=== PATIENT | male | born 1980 | race American Indian/Alaskan Native ===

== ENCOUNTER 2020-06-14 01:00 | Inpatient (IN) | payer OTHER ==
[2020-06-14 02:19] LABS: Basophils % (Auto) 0.1 % (0.0-1.8); Eosinophils % (Auto) 0.2 % (0.0-4.3); Hematocrit 47.9 % (35.5-45.6); Hemoglobin 16.1 gm/dl (11.8-15.2); Lymphocytes # (Auto) 2.3 K/mm3 (1.2-5.4); Lymphocytes % (Auto) 18.6 % (13.4-35.0); Mean Corpuscular HGB Conc 34 % (32-34); Mean Corpuscular Volume 97 fl (84-94); Monocytes # (Auto) 0.6 K/mm3 (0.0-0.8); Monocytes % (Auto) 4.9 % (0.0-7.3); Platelet Count 208 K/mm3 (140-440); Red Blood Count 4.95 M/mm3 (3.65-5.03); Red Cell Distribution Width 13.8 % (13.2-15.2)
[2020-06-14 02:36] LABS: Alanine Aminotransferase 9 units/L (7-56); Albumin 4.8 g/dL (3.9-5); BUN/Creatinine Ratio 11; Blood Urea Nitrogen 10 mg/dL (9-20); Hemolysis Index 5
[2020-06-14] MEDS ORDERED: MORPHINE 4 MG/1 ML INJ IV ONE ×2 (03:50→06:21)
[2020-06-14] MEDS ORDERED: FAMOTIDINE 20 MG/2 ML INJ IV ONE (03:50)
[2020-06-14] MEDS ORDERED: ONDANSETRON 4 MG/2 ML INJ IV ONE ×2 (03:50→06:21)
--- NOTE | 2020-06-14 05:23 | Emergency Department Report ---
ED Abdominal Pain HPI - General Chief Complaint: Abdominal Pain Stated Complaint: ABDOMINAL PAIN Source: patient Mode of arrival: Stretcher Limitations: No Limitations - History of Present Illness Initial Comments: Patient is a 39-year-old -[place] male with a history of peptic ulcer disease and chronic alcohol abuse who presents to the ED with complaint of acute onset persistent severe periumbilical abdominal pain for the last 2 hours. Patient states that the pain is constant, crampy and sharp and that nothing makes it better or worse. Patient states that the last time he drank alcohol was about 6 hours ago. Patient denies hematemesis, nausea, vomiting, diarrhea, fever, chills, cough, chest pain, shortness of breath, dysuria, urinary frequency and urgency, hematochezia, testicular pain, hematuria, headache, dizziness or syncope and traumatic injury. MD Complaint: abdominal pain -: Sudden, hour(s) (2) Location: periumbilical Radiation: none Migration to: no migration Severity: severe Severity scale (0 -10): 8 Quality: cramping, sharp Consistency: constant Improves With: nothing Worsens With: nothing Associated Symptoms: denies other symptoms, anorexia. denies: nausea, vomiting, diarrhea, chills, constipation, hematemesis, hematochezia, melena, syncope, other - Related Data Allergies Allergy/AdvReac Type Severity Reaction Status Date / Time No Known Allergies Allergy Unverified 06/14/20 01:46 ED Review of Systems ROS: Stated complaint: ABDOMINAL PAIN Other details as noted in HPI Constitutional: denies: chills, fever Eyes: denies: eye pain, eye discharge, vision change ENT: denies: ear pain, throat pain Respiratory: denies: cough, shortness of breath, wheezing Cardiovascular: denies: chest pain, palpitations Endocrine: no symptoms reported Gastrointestinal: abdominal pain (Periumbilical pain). denies: nausea, diarrhea Genitourinary: denies: urgency, dysuria Musculoskeletal: denies: back pain, joint swelling, arthralgia Skin: denies: rash, lesions Neurological: denies: headache, weakness, paresthesias Psychiatric: denies: anxiety, depression Hematological/Lymphatic: denies: easy bleeding, easy bruising ED Past Medical Hx - Past Medical History Additional medical history: Peptic Ulcer - Social History Smoking Status: Current Every Day Smoker ED Physical Exam - General Limitations: No Limitations General appearance: alert, in no apparent distress - Head Head exam: Present: atraumatic, normocephalic, normal inspection - Eye Eye exam: Present: normal appearance, PERRL, EOMI Pupils: Present: normal accommodation - ENT ENT exam: Present: normal exam, normal orophraynx, mucous membranes moist, TM's normal bilaterally, normal external ear exam - Neck Neck exam: Present: normal inspection, full ROM - Respiratory Respiratory exam: Present: normal lung sounds bilaterally. Absent: respiratory distress, wheezes, rales, rhonchi, chest wall tenderness, accessory muscle use - Cardiovascular Cardiovascular Exam: Present: regular rate, normal rhythm, normal heart sounds. Absent: systolic murmur, diastolic murmur, rubs, gallop - GI/Abdominal GI/Abdominal exam: Present: soft, tenderness (Palpable severe rebound periumbil ical abdominal tenderness with guarding ), guarding, rebound, normal bowel sounds. Absent: hyperactive bowel sounds - Extremities Exam Extremities exam: Present: normal inspection, full ROM, normal capillary refill - Back Exam Back exam: Present: normal inspection, full ROM. Absent: tenderness, CVA tenderness (R), CVA tenderness (L), muscle spasm, paraspinal tenderness, vertebral tenderness - Neurological Exam Neurological exam: Present: alert, oriented X3, CN II-XII intact, normal gait, reflexes normal - Psychiatric Psychiatric exam: Present: normal affect, normal mood - Skin Skin exam: Present: warm, dry, intact, normal color. Absent: rash ED Course Vital Signs 06/14/20 06/14/20 06/14/20 01:50 04:26 04:56 Temperature 97.3 F L Pulse Rate 96 H Respiratory 18 16 16 Rate Blood Pressure 138/90 Blood Pressure [Left] O2 Sat by Pulse 100 Oximetry 06/14/20 05:46 Temperature 98.2 F Pulse Rate 98 H Respiratory 18 Rate Blood Pressure Blood Pressure 117/84 [Left] O2 Sat by Pulse 100 Oximetry - Reevaluation(s) Reevaluation #1: 06/14/20 05:53 I paged and discussed the patient's case with the general surgeon on-call Dr. Aryan Purvis who advised that the patient be kept n.p.o., be started on IV Zosyn, have NG tube inserted in the ED, and that the patient be admitted by the hospitalist physician on-call and he shall consult on the patient later this morning. Reevaluation #2: 06/14/20 06:15 I therefore paged and discussed the patient's case with the hospitalist physician on-call who accepted the admission and advised that the patient be bridged to the floor in order to obtain a bed. ED Medical Decision Making - Lab Data Result diagrams: 06/14/20 01:54 06/14/20 01:54 - Radiology Data Radiology results: report reviewed, image reviewed [facility] [address] [place] [address] Cat Scan Report Signed Patient: KIMBERLY ARORA MR#: [id number] : 1980 Acct:[id number] Age/Sex: 39 / M ADM Date: 06/14/20 Loc: ED Attending Dr: Ordering Physician: MARYCHUY ALBARRAN Date of Service: 06/14/20 Procedure(s): CT abdomen pelvis w con Accession Number(s): [id number] cc: MARYCHUY ALBARRAN CT ABDOMEN AND PELVIS WITH CONTRAST HISTORY: Abdominal pain. COMPARISON: None. TECHNIQUE: CT images of the abdomen and pelvis were obtained following administration of intravenous contrast. All CT scans at this location are performed using CT dose reduction for ALARA by means of automated exposure control. CONTRAST: 100 ml of intravenous contrast administered. FINDINGS: Lungs/bones: Lung bases are clear. No acute osseous abnormality. Abdomen/pelvis: There is small volume ascites with a few punctate foci of gas collecting about the gallbladder fossa region and also over the liver. Questionable mild wall thickening about the duodenum also noted. The liver, gallbladder spleen, pancreas, adrenals, and kidneys appear unremarkable. Urinary bladder and prostate appear unremarkable. There is small volume pelvic free fluid. No acute colonic abnormality identified. The appendix is normal. IMPRESSION: 1. Small volume ascites and punctate free air in the right upper quadrant of the abdomen worrisome for a perforation. Questionable mild wall thickening along the duodenum also noted. Findings could be seen with a duodenal ulcer perforation for example. IMPORTANT FINDING: Time of Communication (INTAKE ASSESSOR/CDT): 4:16 AM Licensed Practitioner Receiving Report: Dr. Jeff Signer Name: Driss Park MD Signed: 06/14/2020 5:19 AM Workstation Name: [id number] Transcribed By: ANNETTA Dictated By: Driss Park MD Electronically Authenticated By: Driss Park MD Signed Date/Time: 06/14/20518 DD/ 8 TD/TT: - Medical Decision Making This is a 39-year-old -[place] male with a history of peptic ulcer disease and chronic alcohol abuse who presents to the ED with complaint of acute onset persistent severe periumbilical abdominal pain for the last 2 hours. Patient states that the pain is constant, crampy and sharp and that nothing makes it better or worse. Patient states that the last time he drank alcohol was about 6 hours ago. In the ED, patient is alert and oriented x3 and is not in any distress but appears to be in significant pain, crying during the phys ical exam. Lab test results were reviewed and showed acute leukocytosis of 12,300 and hyperglycemia 123 mg/dL. The rest of lab test results are nonactionable. Patient was treated for pain in the ED and also received antiemetics and antacids. Patient also received normal saline 1 L IV bolus x1. Abdomen pelvis CT scan with contrast showed small volume ascites and punctate free air in the right upper quadrant of the abdomen worrisome for a perforation. Questionable mild wall thickening along the duodenum also noted. Findings could be seen with a duodenal ulcer perforation for example. These findings were discussed with the ED attending physician Dr. Tate who agreed the plan of care to page the general surgeon on-call for further consultation. I therefore paged and discussed the patient's case including lab test results and imaging report with the general surgeon on-call Dr. Yaniv Baeza who advised that the patient be kept n.p.o., and NG tube be inserted, and patient be started on Zosyn IV and also be admitted by the hospitalist physician on-call, and he shall consult on the patient later this morning. I also paged and discussed the patient's case with the hospitalist physician on-call who accepted the admission and advised that the patient admission to bridge to the floor in order for him to obtain the bed. The findings also discussed with the patient who agreed with the plan of care. - Differential Diagnosis Appendicitis; pancreatitis; PUD; colitis; enteritis; cholecystitis; SBO Critical care attestation.: If time is entered above; I have spent that time in minutes in the direct care of this critically ill patient, excluding procedure time. ED Disposition Clinical Impression: Abdominal pain, acute, periumbilical, Perforated abdominal viscus, Recurrent p eptic ulcer disease Disposition: OP ADMIT IP TO THIS HOSP Is pt being admited?: Yes Does the pt Need Aspirin: No Condition: Stable Time of Disposition: 06:00 Print Language: BANGLADESHI
--- NOTE | 2020-06-14 05:24 | Cat Scan Report ---
CT ABDOMEN AND PELVIS WITH CONTRAST HISTORY: Abdominal pain. COMPARISON: None. TECHNIQUE: CT images of the abdomen and pelvis were obtained following administration of intravenous contrast. All CT scans at this location are performed using CT dose reduction for ALARA by means of automated exposure control. CONTRAST: 100 ml of intravenous contrast administered. FINDINGS: Lungs/bones: Lung bases are clear. No acute osseous abnormality. Abdomen/pelvis: There is small volume ascites with a few punctate foci of gas collecting about the g allbladder fossa region and also over the liver. Questionable mild wall thickening about the duodenum also noted. The liver, gallbladder spleen, pancreas, adrenals, and kidneys appear unremarkable. Urinary bladder and prostate appear unremarkable. There is small volume pelvic free fluid. No acute c olonic abnormality identified. The appendix is normal. IMPRESSION: 1. Small volume ascites and punctate free air in the right upper quadrant of the abdomen worrisome fo r a perforation. Questionable mild wall thickening along the duodenum also noted. Findings could be s een with a duodenal ulcer perforation for example. IMPORTANT FINDING: Time of Communication (STORE MANAGEMENT TRAINEE/CDT): 4:16 AM Licensed Practitioner Receiving Report: Dr. Jeff Signer Name: Driss Park MD Signed: 06/14/2020 5:19 AM Workstation Name: [id number]
[2020-06-14 05:51] LABS: Bacteria,Urine 2+ /HPF (Negative); Bilirubin,Urine NEG (Negative); Blood,Urine NEG (Negative); Color,Urine Yellow (Yellow); Mucus,Urine 3+ /HPF; Protein,Urine <15 mg/dL mg/dL (Negative)
[2020-06-14] MEDS ORDERED: PIPERACIL/TAZOBACTA 4.5/NS 100 4.5 GM/100 ML VIAL IV ONE (06:01)
[2020-06-14] MEDS ORDERED: SODIUM CHLORIDE 0.9% 1000 ML 1,000 ML IV ONE (06:21)
[2020-06-14] MEDS ORDERED: ACETAMINOPHEN 325 MG TAB PO PRN (06:22)
[2020-06-14] MEDS ORDERED: ONDANSETRON 4 MG/2 ML INJ IV PRN ×2 (06:22→15:34)
[2020-06-14] MEDS ORDERED: PANTOPRAZOLE 40 MG INJ IV ONE (06:56)
--- NOTE | 2020-06-14 07:04 | XRay Report ---
ABDOMEN 3 VIEW(S) INDICATION / CLINICAL INFORMATION: NGT tube placement. COMPARISON: None available. FINDINGS: TUBES / LINES: NG tube at the GE junction and should be advanced another 10 cm. BOWEL GAS PATTERN: No significant abnormality. FREE AIR / EXTRALUMINAL GAS: None seen. ADDITIONAL FINDINGS: No significant additional findings. IMPRESSION: 1. Advance NG tube 10 cm. Signer Name: Driss Park MD Signed: 06/14/2020 7:00 AM Workstation Name: [id number]
[2020-06-14] MEDS: HYDROmorphone 1 MG/1 ML INJ IV PRN (08:24)
--- NOTE | 2020-06-14 09:39 | Anesthesia Consultation ---
Anesthesia Consult and Med Hx Date of service: 06/14/20 - Airway Anesthetic Teeth Evaluation: Chipped ROM Head & Neck: Adequate Mental/Hyoid Distance: Adequate Mallampati Class: Class I Intubation Access Assessment: Good - Pulmonary Exam CTA: Yes - Cardiac Exam Cardiac Exam: RRR - Pre-Operative Health Status ASA Pre-Surgery Classification: ASA2 Proposed Anesthetic Plan: General Nerve Block: TAP possible - Pulmonary Hx Smoking: Yes Hx Asthma: No COPD: No Hx Pneumonia: No Hx Sleep Apnea: No - Cardiovascular System Hx Hypertension: No Hx Heart Attack/AMI: No Hx Angina: No - Central Nervous System Hx Seizures: No - Gastrointestinal Hx Ulcer: Yes Hx Gastroesophageal Reflux Disease: No - Endocrine Hx Renal Disease: No Hx End Stage Renal Disease: No Hx Liver Disease: No Hx Insulin Dependent Diabetes: No Hx Non-Insulin Dependent Diabetes: No - Other Systems Hx Alcohol Use: Yes Hx Cancer: No
--- NOTE | 2020-06-14 09:39 | Anesthesia Day of Surgery ---
Anesthesia Day of Surgery - Day of Surgery Patient Examined: Yes Patient H&P Reviewed: Yes Patient is NPO: Yes (NG tube in place) Beta Blockers: No Cardiac Clearance: No Pulmonary Clearance: No Alejandro's Test: N/A
--- NOTE | 2020-06-14 11:04 | History and Physical Report ---
History of Present Illness Date of examination: 06/14/20 Date of admission: 06/14/20 06:22 Chief complaint: abdominal pain History of present illness: Patient is a 39-year-old -L[place] male with a history of peptic ulcer disease and chronic alcohol abuse who presents to the ED with complaint of acute onset persistent severe periumbilical abdominal pain for the last 2 hours before coming to the hospital. Patient states that the pain is constant, crampy and sharp and that nothing makes it better or worse. Patient states that the last time he drank alcohol was about 6 hours ago. In the ER, CT abdomen/pelvis showed Small volume ascites and punctate free air in the right upper quadrant of the abdomen worrisome for a perforation and Questionable mild wall thickening along the duodenum also noted, Findings could be seen with a duodenal ulcer perforation for example. Serum chemistry significant for leukocytosis and elevated lactic acid. Patient placed on empiric antibiotics, given IV fluid bolus, started on Protonix drip and consulted surgery from the ER. Patient now being admitted under hospitalist service for further evaluation and management. Past medical History: h/o peptic ulcer disease Past surgical History: None Social History: Lives with family, smokes tobacco daily, drinks occasionally denies any illicit drug abuse Family History: No significant significant history of cardiac disease diabetes and gastric cancer cancer Review of System: Constitutional: no fever, no chills, no weight loss Ears, eyes, nose, mouth and throat: no nasal congestion, no nasal discharge, no sinus pressure, no vision change, no red eye. Neck: No neck pain or rigidity. Cardiovascular: No chest pain, no orthopnea, no palpitations, no leg swelling Respiratory: No shortness of breath, no cough, no congestion, no wheezing Gastrointestinal: + abdominal pain, + nausea, + vomiting Genitourinary : no dysuria, no hematuria Musculoskeletal: no joint swelling or muscle ache Integumentary: no rash, no pruritis Neurological: no parathesias, no numbness, no tingling Endocrine: no cold or heat intolerance, no polyuria or polydipsia Hematologic/Lymphatic: no easy bruising, no easy bleeding, no gland swelling Allergic/Immunologic: no urticaria, no angioedema. Medications and Allergies Allergies Allergy/AdvReac Type Severity Reaction Status Date / Time No Known Allergies Allergy Unverified 06/14/20 01:46 Home Medications Medication Instructions Recorded Confirmed Last Taken Type Esomeprazole Magnesium [Nexium 20 mg PO DAILY 06/14/20 06/14/20 06/12/20 History 24Hr] Active Meds: Active Medications Acetaminophen (Acetaminophen 325 Mg Tab) 650 mg PO Q4H PRN PRN Reason: Pain MILD(1-3)/Fever >100.5/CHACON Hydromorphone HCl (Hydromorphone 1 Mg/1 Ml Inj) 1 mg IV Q4H PRN PRN Reason: Pain , Severe (7-10) Last Admin: 06/14/20 08:24 Dose: 1 mg Documented by: Sodium Chloride (Nacl 0.9% 1000 Ml) 1,000 mls @ 125 mls/hr IV ONCE ONE Stop: 06/14/20 14:20 Last Admin: 06/14/20 06:36 Dose: 125 mls/hr Documented by: Ondansetron HCl (Ondansetron 4 Mg/2 Ml Inj) 4 mg IV Q8H PRN PRN Reason: Nausea And Vomiting Sodium Chloride (Sodium Chloride 0.9% 10 Ml Flush Syringe) 10 ml IV BID STEWART Last Admin: 06/14/20 09:12 Dose: Not Given Documented by: Sodium Chloride (Sodium Chloride 0.9% 10 Ml Flush Syringe) 10 ml IV PRN PRN PRN Reason: LINE FLUSH Exam - Physical Exam Narrative exam: GENERAL: well-developed and well-nourished -[place] young male lying on bed appeared to be in no discomfort. HEENT: Normocephalic. Atraumatic. No conjunctival congestion or icterus. Patient has moist mucous membranes. NECK: Supple. Trachea midline. CHEST/LUNGS: Clear to auscultated bilaterally, breathing nonlabored. No wheezes crackles or rhonchi. HEART/CARDIOVASCULAR: Regular in rate and rhythm. S1 and S2 positive. ABDOMEN: Abdomen is soft, + diffuse tenderNESS. Patient has hypoactive bowel sounds. SKIN: There is no rash. Warm and dry. NEURO: No focal motor deficit. Follows command. MUSCULOSKELETAL: No joint effusion or tenderness. EXTRIMITY: No edema, no cyanosis or clubbing. PSYCH: Cooperative. - Constitutional Vitals: Temp Pulse Resp BP Pulse Ox 97.9 F 85 16 134/86 98 06/14/20 08:37 06/14/20 09:05 06/14/20 08:37 06/14/20 08:37 06/14/20 08:37 Results - Labs CBC & Chem 7: 06/14/20 01:54 06/14/20 01:54 Labs: Abnormal lab results 06/14/20 06/14/20 06/14/20 Range/Units 01:54 01:54 03:53 WBC 12.3 H (4.5-11.0) K/mm3 Hgb 16.1 H (11.8-15.2) gm/dl Hct 47.9 H (35.5-45.6) % MCV 97 H (84-94) fl MCH 33 H (28-32) pg Seg Neutrophils % 76.2 H (40.0-70.0) % Seg Neutrophils # 9.4 H (1.8-7.7) K/mm3 Glucose 123 H (75-100) mg/dL Lactic Acid (0.7-2.0) mmol/L Lipase 12 L (13-60) units/L Ur Specific [place] (1.003-1.030) 06/14/20 06/14/20 Range/Units 05:13 08:54 WBC (4.5-11.0) K/mm3 Hgb (11.8-15.2) gm/dl Hct (35.5-45.6) % MCV (84-94) fl MCH (28-32) pg Seg Neutrophils % (40.0-70.0) % Seg Neutrophils # (1.8-7.7) K/mm3 Glucose (75-100) mg/dL Lactic Acid 3.00 H* (0.7-2.0) mmol/L Lipase (13-60) units/L Ur Specific [place] 1.033 H (1.003-1.030) - Imaging and Cardiology Abdominal x-ray: report reviewed CT scan - abdomen: report reviewed Assessment and Plan Perforated viscus Sepsis Lactic acidosis Tobacco abuse Alcohol abuse History of peptic ulcer disease -Admit to MedSurg with aggressive IV fluid hydration, empiric antibiotic -Placed on IV pain medicine as needed -Continue Protonix drip -Consulted surgery will follow recommendation -Monitor for alcohol withdrawal -SCD for DVT prophylaxis -Follow blood culture
[2020-06-14] MEDS: PIPERACIL/TAZOBACTA 4.5/NS 100 4.5 GM/100 ML VIAL IV SCH ×2 (11:47→22:42)
[2020-06-14] MEDS ORDERED: PIPERACILLIN/TAZOBACTAM 3.375 3.375 GM/50 ML BAG IV SCH (12:00)
[2020-06-14] MEDS ORDERED: propofoL 200 MG/20 ML VIAL IV ONE ×2 (12:27→15:25)
[2020-06-14] MEDS ORDERED: HYDROmorphone 1 MG/1 ML INJ ONE (12:27)
[2020-06-14] MEDS ORDERED: LIDOCAINE MPF (2%) 20 MG/1 ML VIAL 5 ML ONE (12:27)
[2020-06-14] MEDS ORDERED: ROCURONIUM 50 MG/5 ML INJ IV ONE (12:27)
[2020-06-14] MEDS ORDERED: SUCCINYLCHOLINE CHLORIDE 200 MG/10 ML INJ MDV ONE (12:36)
[2020-06-14] MEDS ORDERED: dexAMETHasone 20 MG/5 ML VIAL ONE (12:37)
[2020-06-14] MEDS ORDERED: KETOROLAC 30 MG/1 ML INJ ONE (12:37)
[2020-06-14] MEDS ORDERED: ONDANSETRON 4 MG/2 ML INJ ONE (12:37)
[2020-06-14] MEDS ORDERED: PHENYLEPHRINE/NS 1,000 MCG/10 ML SYRINGE (OR USE) IV ONE (14:47)
[2020-06-14] MEDS ORDERED: NEOSTIGMINE 10MG/10 ML INJ MDV ONE (15:34)
[2020-06-14] MEDS ORDERED: GLYCOPYRROLATE 0.4 MG/2 ML INJ ONE (15:34)
[2020-06-14] MEDS ORDERED: HYDROmorphone 1 MG/1 ML INJ IV PRN ×2 (15:34)
[2020-06-14] MEDS ORDERED: LACTATED RINGERS 1,000 ML ONE (16:00)
[2020-06-14] MEDS ORDERED: SODIUM CHLORIDE 0.9% IRR 1,500 ML BOTTLE IR ONE (16:04)
--- NOTE | 2020-06-14 16:14 | Consultation ---
History of Present Illness Consult date: 06/14/20 Reason for consult: abdominal pain - History of present illness History of present illness: 39 yo male with acute epigastric pain. See CT abdomen report. Medications and Allergies Allergies Allergy/AdvReac Type Severity Reaction Status Date / Time No Known Allergies Allergy Unverified 06/14/20 01:46 Home Medications Medication Instructions Recorded Confirmed Last Taken Type Esomeprazole Magnesium [Nexium 20 mg PO DAILY 06/14/20 06/14/20 06/12/20 History 24Hr] Active Meds: Active Medications Acetaminophen (Acetaminophen 325 Mg Tab) 650 mg PO Q4H PRN PRN Reason: Pain MILD(1-3)/Fever >100.5/CHACON Hydromorphone HCl (Hydromorphone 1 Mg/1 Ml Inj) 1 mg IV Q4H PRN PRN Reason: Pain , Severe (7-10) Last Admin: 06/14/20 08:24 Dose: 1 mg Documented by: Hydromorphone HCl (Hydromorphone 1 Mg/1 Ml Inj) 0.25 mg IV Q10MIN PRN PRN Reason: Pain, Moderate (4-6) Stop: 06/14/20 23:00 Hydromorphone HCl (Hydromorphone 1 Mg/1 Ml Inj) 0.5 mg IV Q10MIN PRN PRN Reason: Pain , Severe (7-10) Stop: 06/14/20 23:00 Piperacillin Sod/Tazobactam Sod (Zosyn/Ns 4.5gm/100ml) 4.5 gm in 100 mls @ 200 mls/hr IV Q8HR [facility] Last Admin: 06/14/20 11:47 Dose: 200 mls/hr Documented by: Pantoprazole Sodium 80 mg/ (Sodium Chloride) 100 mls @ 10 mls/hr IV DIRECT STEWART Ondansetron HCl (Ondansetron 4 Mg/2 Ml Inj) 4 mg IV Q8H PRN PRN Reason: Nausea And Vomiting Ondansetron HCl (Ondansetron 4 Mg/2 Ml Inj) 4 mg IV ONCE PRN PRN Reason: Nausea And Vomiting Stop: 06/14/20 20:00 Sodium Chloride (Sodium Chloride 0.9% 10 Ml Flush Syringe) 10 ml IV BID [facility] Last Admin: 06/14/20 09:12 Dose: Not Given Documented by: Sodium Chloride (Sodium Chloride 0.9% 10 Ml Flush Syringe) 10 ml IV PRN PRN PRN Reason: LINE FLUSH Review of Systems All systems: negative (none) Exam Vital Signs Temp Pulse Resp BP Pulse Ox 97.3 F L 96 H 18 138/90 100 06/14/20 01:50 06/14/20 01:50 06/14/20 01:50 06/14/20 01:50 06/14/20 01:50 - General physical appearance Positive: well developed, well nourished, no distress - Eyes Positive: PERRL, normal occular movement - ENT Positive: normal pinna, normal nares, normal mucosa, no hearing loss, no congestion - Neck Positive: no masses, no bruits, trachea midline, no venous distension - Respiratory Positive: normal expansion, normal respiratory effort, clear to auscultation - Cardiovascular Rhythm: regular Heart Sounds: Present: S1 & S2. Absent: rub, click - Extremities Extremities: no ischemia, pulses symmetrical, No edema - Breasts Breasts: normal, no mass, no skin changes - Abdomen Abdomen: Present: other (Flat with hypoactive BS. Tender in the epigastrium with early guarding. ) Hernia: none - Genitourinary Male Genitourinary: normal Female Genitourinary: normal - Integumentary no rash, no growths, no abnormal pigmentation - Neurologic Neurologic: alert and oriented to time, place and person, motor strength and sensation are grossly intact - Musculoskeletal normal gait, normal posture - Psychiatric Psychiatric: appropriate mood/affect, intact judgment & insight Results - Labs 06/14/20 01:54 06/14/20 01:54 Abnormal lab results 06/14/20 06/14/20 06/14/20 Range/Units 01:54 01:54 03:53 WBC 12.3 H (4.5-11.0) K/mm3 Hgb 16.1 H (11.8-15.2) gm/dl Hct 47.9 H (35.5-45.6) % MCV 97 H (84-94) fl MCH 33 H (28-32) pg Seg Neutrophils % 76.2 H (40.0-70.0) % Seg Neutrophils # 9.4 H (1.8-7.7) K/mm3 Glucose 123 H (75-100) mg/dL Lactic Acid (0.7-2.0) mmol/L Lipase 12 L (13-60) units/L Ur Specific [place] (1.003-1.030) 06/14/20 06/14/20 Range/Units 05:13 08:54 WBC (4.5-11.0) K/mm3 Hgb (11.8-15.2) gm/dl Hct (35.5-45.6) % MCV (84-94) fl MCH (28-32) pg Seg Neutrophils % (40.0-70.0) % Seg Neutrophils # (1.8-7.7) K/mm3 Glucose (75-100) mg/dL Lactic Acid 3.00 H* (0.7-2.0) mmol/L Lipase (13-60) units/L Ur Specific [place] 1.033 H (1.003-1.030) Diabetes panel 06/14/20 Range/Units 01:54 Sodium 138 (137-145) mmol/L Potassium 4.0 (3.6-5.0) mmol/L Chloride 98.6 (98-107) mmol/L Carbon Dioxide 27 (22-30) mmol/L BUN 10 (9-20) mg/dL Creatinine 0.9 (0.8-1.3) mg/dL Glucose 123 H (75-100) mg/dL Calcium 10.0 (8.4-10.2) mg/dL AST 13 (5-40) units/L ALT 9 (7-56) units/L Alkaline Phosphatase 65 (35-129) units/L Total Protein 7.1 (6.3-8.2) g/dL Albumin 4.8 (3.9-5) g/dL Calcium panel 06/14/20 Range/Units 01:54 Calcium 10.0 (8.4-10.2) mg/dL Albumin 4.8 (3.9-5) g/dL Pituitary panel 06/14/20 Range/Units 01:54 Sodium 138 (137-145) mmol/L Potassium 4.0 (3.6-5.0) mmol/L Chloride 98.6 (98-107) mmol/L Carbon Dioxide 27 (22-30) mmol/L BUN 10 (9-20) mg/dL Creatinine 0.9 (0.8-1.3) mg/dL Glucose 123 H (75-100) mg/dL Calcium 10.0 (8.4-10.2) mg/dL Adrenal panel 06/14/20 Range/Units 01:54 Sodium 138 (137-145) mmol/L Potassium 4.0 (3.6-5.0) mmol/L Chloride 98.6 (98-107) mmol/L Carbon Dioxide 27 (22-30) mmol/L BUN 10 (9-20) mg/dL Creatinine 0.9 (0.8-1.3) mg/dL Glucose 123 H (75-100) mg/dL Calcium 10.0 (8.4-10.2) mg/dL Total Bilirubin 1.00 (0.1-1.2) mg/dL AST 13 (5-40) units/L ALT 9 (7-56) units/L Alkaline Phosphatase 65 (35-129) units/L Total Protein 7.1 (6.3-8.2) g/dL Albumin 4.8 (3.9-5) g/dL - Imaging CT scan - abdomen: report reviewed CT scan - pelvis: report reviewed Assessment and Plan - Patient Problems (1) Perforated abdominal viscus Current Visit: Yes Status: Acute Plan to address problem: 1) IV Zosyn 2) NPO 3) IVF 4) IV PPI 5) To OR for exploratory laparotomy and oversewing of ulcer/Negro patch
--- NOTE | 2020-06-14 16:16 | Procedure Note ---
Date of procedure: 06/14/20 Pre-op diagnosis: Perforated /DU Post-op diagnosis: same Procedure: Exploratory laparotomy with oversew of perforated duodenal bulb ulcer Description of procedure: Pt was placed supine on the OR table. GETA was administered. Browne catheter was inserted. Abdomen was prepped and draped. Peritoneal cavity was entered via a vertical midline incision from the xiphoid process to the umbilicus. Immediately on entering the peritoneal cavity, free bilious fluid was encountered. The was collected for C&S. The perforation was immediately identified at the anterior-superior aspect of the duodenal bulb. Free fluid was aspirated. The ulcer measured about 1 cm in diameter and was oversewn with 3 interrupted sutures of 2-0 silk. The 2-0 silk ties were left long to secure the omental patch. Omentum was freed up from the transverse colon with the Bovie. The freed up omentum was then placed over the perforation and was secured in place by the aforementioned 2-0 silk ties. Peritoneal cavity was irrigated with 2 liters of warm saline. Midline fascia was approximated with a running, looped #1 PDS. SQ plane was packed open with a dilute, Betadine moistened Kerlix roll followed by dry 4 X 4's and Medipore tape. Pt tolerated the procedure well. Pt was extubated in the OR and was taken to PACU in stable condition. Anesthesia: GETA Surgeon: RADHA MORRIS Estimated blood loss: minimal Pathology: none Condition: stable Disposition: PACU
[2020-06-14] MEDS: PANTOPRAZOLE 80 MG in SODIUM CHLORIDE 0.9% 100 ML IV SCH (17:32)
[2020-06-15] MEDS: PIPERACIL/TAZOBACTA 4.5/NS 100 4.5 GM/100 ML VIAL IV SCH ×3 (05:51→21:36)
[2020-06-15 09:53] LABS: Hematocrit 38.3 % (35.5-45.6); Hemoglobin 12.9 gm/dl (11.8-15.2); Mean Corpuscular HGB Conc 34 % (32-34); Mean Corpuscular Volume 97 fl (84-94); Platelet Count 153 K/mm3 (140-440); Red Blood Count 3.96 M/mm3 (3.65-5.03); Red Cell Distribution Width 13.4 % (13.2-15.2)
[2020-06-15] MEDS: D5W/0.9% NACL 1,000 ML IV SCH (10:04)
[2020-06-15 10:09] LABS: BUN/Creatinine Ratio 13; Blood Urea Nitrogen 15 mg/dL (9-20); Calcium 8.3 mg/dL (8.4-10.2); Hemolysis Index 6
--- NOTE | 2020-06-15 10:41 | Post Anesthesia Evaluation ---
- Post Anesthesia Evaluation Patient Participated: Yes Airway Patent: Yes Stable Respiratory Function: Yes Nausea/Vomiting: No Temp > 96.8F: Yes Pain Manageable: Yes Adequeate Hydration: Yes Anesthesia Complications: No Block Receding Appropriately: Not Applicable Patient on Ventilator: No
[2020-06-15] MEDS: PANTOPRAZOLE 80 MG in SODIUM CHLORIDE 0.9% 100 ML IV SCH (12:07)
--- NOTE | 2020-06-15 15:04 | Progress Note ---
Assessment and Plan - Patient Problems (1) Perforated abdominal viscus Current Visit: Yes Status: Acute Plan to address problem: 1) DC marin 2) OOB 3) Wound care nurse consult Subjective Date of service: 06/15/20 Patient Reports: Positive: no new complaints, no flatus, no bowel movement Objective Vital Signs - 12hr 06/15/20 06/15/20 05:31 13:02 Temperature 98.2 F 98.9 F Pulse Rate 73 75 Respiratory 20 20 Rate Blood Pressure 116/73 Blood Pressure 112/72 [Left] O2 Sat by Pulse 100 Oximetry - Abdomen soft, bowel sounds hypoactive - Labs 06/15/20 09:37 06/15/20 09:37 Diabetes panel 06/15/20 Range/Units 09:37 Sodium 138 (137-145) mmol/L Potassium 4.2 (3.6-5.0) mmol/L Chloride 103.1 (98-107) mmol/L Carbon Dioxide 28 (22-30) mmol/L BUN 15 (9-20) mg/dL Creatinine 1.2 (0.8-1.3) mg/dL Glucose 96 (75-100) mg/dL Calcium 8.3 L D (8.4-10.2) mg/dL Calcium panel 06/15/20 Range/Units 09:37 Calcium 8.3 L D (8.4-10.2) mg/dL Pituitary panel 06/15/20 Range/Units 09:37 Sodium 138 (137-145) mmol/L Potassium 4.2 (3.6-5.0) mmol/L Chloride 103.1 (98-107) mmol/L Carbon Dioxide 28 (22-30) mmol/L BUN 15 (9-20) mg/dL Creatinine 1.2 (0.8-1.3) mg/dL Glucose 96 (75-100) mg/dL Calcium 8.3 L D (8.4-10.2) mg/dL Adrenal panel 06/15/20 Range/Units 09:37 Sodium 138 (137-145) mmol/L Potassium 4.2 (3.6-5.0) mmol/L Chloride 103.1 (98-107) mmol/L Carbon Dioxide 28 (22-30) mmol/L BUN 15 (9-20) mg/dL Creatinine 1.2 (0.8-1.3) mg/dL Glucose 96 (75-100) mg/dL Calcium 8.3 L D (8.4-10.2) mg/dL
--- NOTE | 2020-06-15 16:08 | Progress Note ---
Assessment and Plan Perforated viscus Sepsis Lactic acidosis Tobacco abuse Alcohol abuse History of peptic ulcer disease -Admitted to [facility] with aggressive IV fluid hydration, empiric antibiotic -Placed on IV pain medicine as needed -Continue Protonix drip -Consulted surgery and s/p surgery yesterday - cont NPO status, IV fluid -Monitor for alcohol withdrawal -SCD for DVT prophylaxis -Follow blood culture Brief History: Patient is a 39-year-old -Turkish male with a history of peptic ulcer disease and chronic alcohol abuse presented to the ED with complaint of acute onset persistent severe periumbilical abdominal pain. In the ER, CT abdomen/pelvis showed Small volume ascites and punctate free air in the right upper quadrant of the abdomen worrisome for a perforation and Questionable mild wall thickening along the duodenum also noted, Findings could be seen with a duodenal ulcer perforation for example. Serum chemistry significant for leukocytosis and elevated lactic acid. Patient placed on empiric antibiotics, given IV fluid bolus, started on Protonix drip and consulted surgery from the ER. 06/15: s/p Exploratory laparotomy with oversew of perforated duodenal bulb ulcer with omentum patch repair. Keep NPO, cont iv fluid, iv abx. follow clinically. Subjective Date of service: 06/15/20 Interval history: Patient seen and examined. Medical records and medication list reviewed. No acute event overnight noted by the RN. Patient denies any chest pain or difficulty breathing. Patient states that abdominal pain under control and he is feeling a lot better today Discussed plan of care at bedside with patient. Objective - Exam Narrative Exam: GENERAL: well-developed and well-nourished -[place]ish young male lying on bed appeared to be in no discomfort. HEENT: Normocephalic. Atraumatic. No conjunctival congestion or icterus. Patient has moist mucous membranes. NECK: Supple. Trachea midline. CHEST/LUNGS: Clear to auscultated bilaterally, breathing nonlabored. No wheezes crackles or rhonchi. HEART/CARDIOVASCULAR: Regular in rate and rhythm. S1 and S2 positive. ABDOMEN: Abdomen is soft, on clean surgical dressing SKIN: There is no rash. Warm and dry. NEURO: No focal motor deficit. Follows command. MUSCULOSKELETAL: No joint effusion or tenderness. EXTRIMITY: No edema, no cyanosis or clubbing. PSYCH: Cooperative. - Constitutional Vitals: Vital Signs - 12hr 06/15/20 06/15/20 05:31 13:02 Temperature 98.2 F 98.9 F Pulse Rate 73 75 Respiratory 20 20 Rate Blood Pressure 116/73 Blood Pressure 112/72 [Left] O2 Sat by Pulse 100 Oximetry - Labs CBC & Chem 7: 06/15/20 09:37 06/15/20 09:37 Labs: Abnormal lab results 06/15/20 06/15/20 Range/Units 09:37 09:37 MCV 97 H (84-94) fl MCH 33 H (28-32) pg Calcium 8.3 L D (8.4-10.2) mg/dL
[2020-06-15] MEDS: HYDROmorphone 1 MG/1 ML INJ IV PRN ×2 (17:54→23:52)
[2020-06-16] MEDS: D5W/0.9% NACL 1,000 ML IV SCH ×2 (02:09→18:11)
[2020-06-16] MEDS: PANTOPRAZOLE 80 MG in SODIUM CHLORIDE 0.9% 100 ML IV SCH ×3 (02:09→22:38)
[2020-06-16] MEDS: PIPERACIL/TAZOBACTA 4.5/NS 100 4.5 GM/100 ML VIAL IV SCH ×3 (05:17→22:38)
[2020-06-16 08:22] LABS: Basophils % (Auto) 0.2 % (0.0-1.8); Eosinophils # (Auto) 0.1 K/mm3 (0.0-0.4); Eosinophils % (Auto) 1.3 % (0.0-4.3); Hematocrit 36.1 % (35.5-45.6); Hemoglobin 12.1 gm/dl (11.8-15.2); Lymphocytes # (Auto) 1.4 K/mm3 (1.2-5.4); Lymphocytes % (Auto) 15.7 % (13.4-35.0); Mean Corpuscular HGB Conc 34 % (32-34); Mean Corpuscular Volume 98 fl (84-94); Monocytes # (Auto) 0.6 K/mm3 (0.0-0.8); Platelet Count 134 K/mm3 (140-440); Red Blood Count 3.69 M/mm3 (3.65-5.03); Red Cell Distribution Width 13.8 % (13.2-15.2)
[2020-06-16 08:28] LABS: BUN/Creatinine Ratio 11; Blood Urea Nitrogen 12 mg/dL (9-20); Calcium 8.2 mg/dL (8.4-10.2); Hemolysis Index 2
--- NOTE | 2020-06-16 10:26 | Progress Note ---
Assessment and Plan - Patient Problems (1) Perforated abdominal viscus Current Visit: Yes Status: Acute Plan to address problem: 1) DC NG 2) Sips of clears 3) Ambulate in halls 4) BID dressing changes with Dakin's Subjective Date of service: 06/16/20 Patient Reports: Positive: no new complaints, feels better, no flatus, no bowel movement Objective Vital Signs - 12hr 06/16/20 03:52 Temperature 98.2 F Pulse Rate 70 Respiratory 16 Rate Blood Pressure 118/72 O2 Sat by Pulse 97 Oximetry - Abdomen PM_46_EXABD1 4, PM_46_EXABD1 6, PM_46_EXABD1 8 Hernia: none - Labs 06/16/20 07:37 06/16/20 07:37 Diabetes panel 06/16/20 Range/Units 07:37 Sodium 141 (137-145) mmol/L Potassium 3.9 (3.6-5.0) mmol/L Chloride 107.3 H (98-107) mmol/L Carbon Dioxide 28 (22-30) mmol/L BUN 12 (9-20) mg/dL Creatinine 1.1 (0.8-1.3) mg/dL Glucose 93 (75-100) mg/dL Calcium 8.2 L (8.4-10.2) mg/dL Calcium panel 06/16/20 Range/Units 07:37 Calcium 8.2 L (8.4-10.2) mg/dL Pituitary panel 06/16/20 Range/Units 07:37 Sodium 141 (137-145) mmol/L Potassium 3.9 (3.6-5.0) mmol/L Chloride 107.3 H (98-107) mmol/L Carbon Dioxide 28 (22-30) mmol/L BUN 12 (9-20) mg/dL Creatinine 1.1 (0.8-1.3) mg/dL Glucose 93 (75-100) mg/dL Calcium 8.2 L (8.4-10.2) mg/dL Adrenal panel 06/16/20 Range/Units 07:37 Sodium 141 (137-145) mmol/L Potassium 3.9 (3.6-5.0) mmol/L Chloride 107.3 H (98-107) mmol/L Carbon Dioxide 28 (22-30) mmol/L BUN 12 (9-20) mg/dL Creatinine 1.1 (0.8-1.3) mg/dL Glucose 93 (75-100) mg/dL Calcium 8.2 L (8.4-10.2) mg/dL - Imaging Additional Studies: NG output is minimal. BS are active.
--- NOTE | 2020-06-16 16:33 | Progress Note ---
Assessment and Plan Perforated duodenal bulb ulcer Sepsis Lactic acidosis Tobacco abuse Alcohol abuse History of peptic ulcer disease -Admitted to [facility] with aggressive IV fluid hydration, empiric antibiotic -Placed on IV pain medicine as needed -Continue Protonix drip -Consulted surgery and s/p surgery -NG suction, IV fluid -Monitor for alcohol withdrawal -SCD for DVT prophylaxis -Follow blood culture Brief History: Patient is a 39-year-old -[place] male with a history of peptic ulcer disease and chronic alcohol abuse presented to the ED with complaint of acute onset persistent severe periumbilical abdominal pain. In the ER, CT abdomen/pelvis showed Small volume ascites and punctate free air in the right upper quadrant of the abdomen worrisome for a perforation and Questionable mild wall thickening along the duodenum also noted, Findings could be seen with a duodenal ulcer perforation for example. Serum chemistry significant for leukocytosis and elevated lactic acid. Patient placed on empiric antibiotics, given IV fluid bolus, started on Protonix drip and consulted surgery from the ER. 06/15: s/p Exploratory laparotomy with oversew of perforated duodenal bulb ulcer with omentum patch repair. Keep NPO, cont iv fluid, iv abx. follow clinically. 06/16: Plan to DC NG suction today, will allow sips of water with ice chips. Continue IV fluid hydration and monitor BMP. Subjective Date of service: 06/16/20 Interval history: Patient seen and examined. Medical records and medication list reviewed. No acute event overnight noted by the RN. Patient denies any chest pain or difficulty breathing. Patient remains on NG suction Discussed plan of care at bedside with patient. Objective - Exam Narrative Exam: GENERAL: well-developed and well-nourished -[place] young male lying on bed appeared to be in no discomfort. HEENT: Normocephalic. Atraumatic. No conjunctival congestion or icterus. Patient has moist mucous membranes. NECK: Supple. Trachea midline. CHEST/LUNGS: Clear to auscultated bilaterally, breathing nonlabored. No wheezes crackles or rhonchi. HEART/CARDIOVASCULAR: Regular in rate and rhythm. S1 and S2 positive. ABDOMEN: Abdomen is soft, on clean surgical dressing SKIN: There is no rash. Warm and dry. NEURO: No focal motor deficit. Follows command. MUSCULOSKELETAL: No joint effusion or tenderness. EXTRIMITY: No edema, no cyanosis or clubbing. PSYCH: Cooperative. - Constitutional Vitals: Vital Signs - 12hr 06/16/20 11:18 Temperature 98.9 F Pulse Rate 67 Blood Pressure 125/71 O2 Sat by Pulse 99 Oximetry - Labs CBC & Chem 7: 06/16/20 07:37 06/16/20 07:37 Labs: Abnormal lab results 06/16/20 06/16/20 Range/Units 07:37 07:37 MCV 98 H (84-94) fl MCH 33 H (28-32) pg Plt Count 134 L (140-440) K/mm3 Seg Neutrophils % 75.8 H (40.0-70.0) % Chloride 107.3 H (98-107) mmol/L Calcium 8.2 L (8.4-10.2) mg/dL
[2020-06-16] MEDS: SODIUM HYPOCHLORITE, DAKIN'S FULL STRENGTH (0.5%) 473 ML TOPICAL SOLN TP SCH ×2 (18:03→22:39)
[2020-06-16] MEDS: HYDROmorphone 1 MG/1 ML INJ IV PRN (18:31)
[2020-06-17] MEDS: HYDROmorphone 1 MG/1 ML INJ IV PRN ×3 (00:56→23:36)
[2020-06-17] MEDS: PIPERACIL/TAZOBACTA 4.5/NS 100 4.5 GM/100 ML VIAL IV SCH ×3 (05:48→21:55)
[2020-06-17] MEDS: D5W/0.9% NACL 1,000 ML IV SCH (07:07)
[2020-06-17 07:57] LABS: Basophils % (Auto) 0.3 % (0.0-1.8); Eosinophils # (Auto) 0.2 K/mm3 (0.0-0.4); Eosinophils % (Auto) 2.9 % (0.0-4.3); Hematocrit 36.9 % (35.5-45.6); Hemoglobin 12.6 gm/dl (11.8-15.2); Lymphocytes # (Auto) 1.2 K/mm3 (1.2-5.4); Lymphocytes % (Auto) 17.3 % (13.4-35.0); Mean Corpuscular HGB Conc 34 % (32-34); Mean Corpuscular Volume 97 fl (84-94); Monocytes # (Auto) 0.5 K/mm3 (0.0-0.8); Monocytes % (Auto) 6.4 % (0.0-7.3); Platelet Count 137 K/mm3 (140-440); Red Cell Distribution Width 13.1 % (13.2-15.2)
[2020-06-17 08:06] LABS: BUN/Creatinine Ratio 9; Blood Urea Nitrogen 8 mg/dL (9-20); Calcium 8.7 mg/dL (8.4-10.2); Hemolysis Index 6
[2020-06-17] MEDS: THIAMINE 100 MG in SODIUM CHLORIDE 0.9% 50 ML IV SCH (12:08)
[2020-06-17] MEDS: FOLIC ACID 1 MG in SODIUM CHLORIDE 0.9% 50 ML IV SCH (13:26)
--- NOTE | 2020-06-17 14:07 | Progress Note ---
Assessment and Plan Perforated duodenal bulb ulcer Sepsis Lactic acidosis Tobacco abuse Alcohol abuse History of peptic ulcer disease -Admitted to [facility] with aggressive IV fluid hydration, empiric antibiotic -Placed on IV pain medicine as needed -Continue Protonix drip -Consulted surgery and s/p surgery -s/p NG suction, cont IV fluid -Monitor for alcohol withdrawal -SCD for DVT prophylaxis -Follow blood culture Brief History: Patient is a 39-year-old -[place] male with a history of peptic ulcer disease and chronic alcohol abuse presented to the ED with complaint of acute onset persistent severe periumbilical abdominal pain. In the ER, CT abdomen/pelvis showed Small volume ascites and punctate free air in the r ight upper quadrant of the abdomen worrisome for a perforation and Questionable mild wall thickening along the duodenum also noted, Findings could be seen with a duodenal ulcer perforation for example. Serum chemistry significant for leukocytosis and elevated lactic acid. Patient placed on empiric antibiotics, given IV fluid bolus, started on Protonix drip and consulted surgery from the ER. 06/15: s/p Exploratory laparotomy with oversew of perforated duodenal bulb ulcer with omentum patch repair. Keep NPO, cont iv fluid, iv abx. follow clinically. 06/16: Plan to DC NG suction today, will allow sips of water with ice chips. Continue IV fluid hydration and monitor BMP. 06/17: Discuused with GS today, plan to start on full liquid diet. if tolerates diet Can probably be discharged tomorrow. Needs oral PPI until post-op EGD can be performed. recommended no NSAID/drinking/smoking. Subjective Date of service: 06/17/20 Interval history: Patient seen and examined. Medical records and medication list reviewed. No acute event overnight noted by the RN. Patient denies any chest pain or difficulty breathing. off NG suction, passing flatus Discussed plan of care at bedside with patient. Objective - Exam Narrative Exam: GENERAL: well-developed and well-nourished -[place] young male lying on bed appeared to be in no discomfort. HEENT: Normocephalic. Atraumatic. No conjunctival congestion or icterus. Patient has moist mucous membranes. NECK: Supple. Trachea midline. CHEST/LUNGS: Clear to auscultated bilaterally, breathing nonlabored. No wheezes crackles or rhonchi. HEART/CARDIOVASCULAR: Regular in rate and rhythm. S1 and S2 positive. ABDOMEN: Abdomen is soft, on clean surgical dressing SKIN: There is no rash. Warm and dry. NEURO: No focal motor deficit. Follows command. MUSCULOSKELETAL: No joint effusion or tenderness. EXTRIMITY: No edema, no cyanosis or clubbing. PSYCH: Cooperative. - Constitutional Vitals: Vital Signs - 12hr 06/17/20 06/17/20 05:12 12:07 Temperature 98.3 F 98.9 F Pulse Rate 61 Respiratory 18 16 Rate Blood Pressure 124/75 Blood Pressure 113/70 [Left] O2 Sat by Pulse 100 Oximetry - Labs CBC & Chem 7: 06/17/20 07:28 06/17/20 07:28 Labs: Abnormal lab results 06/17/20 06/17/20 06/17/20 Range/Units 07:28 07:28 07:28 MCV 97 H (84-94) fl MCH 33 H (28-32) pg RDW 13.1 L (13.2-15.2) % Plt Count 137 L (140-440) K/mm3 Seg Neutrophils % 73.1 H (40.0-70.0) % BUN 8 L (9-20) mg/dL Lactic Acid 0.50 L (0.7-2.0) mmol/L
[2020-06-17] MEDS: PANTOPRAZOLE 80 MG in SODIUM CHLORIDE 0.9% 100 ML IV SCH (16:21)
[2020-06-17] MEDS ORDERED: oxyCODONE 5 MG TAB PO PRN (17:58)
--- NOTE | 2020-06-17 18:05 | Progress Note ---
Assessment and Plan - Patient Problems (1) Perforated abdominal viscus Current Visit: Yes Status: Acute Plan to address problem: 1) FLD 2) Switch to Percocet 10 3) Instruct pt in wound care with Dakin's solution. 4) Can probably be discharged tomorrow. 5) Needs oral PPI until post-op EGD can be performed. 6) No NSAID's for life. 7) No smoking for life. 8) Best if no alcohol for life. 9) Can f/u in my office in 2 weeks. 10) IVF and IV Dilaudid discontinued. Subjective Date of service: 06/17/20 Patient Reports: Positive: no new complaints, feels better, pain is less, tolera ting liquids well, flatus, bowel movement (Good pain control. ) Objective Vital Signs - 12hr 06/17/20 12:07 Temperature 98.9 F Respiratory 16 Rate Blood Pressure 124/75 - Abdomen soft, bowel sounds normal (Minimally TTP without rebound or guarding.) - Labs 06/17/20 07:28 06/17/20 07:28 Diabetes panel 06/17/20 Range/Units 07:28 Sodium 137 (137-145) mmol/L Potassium 3.6 (3.6-5.0) mmol/L Chloride 102.4 (98-107) mmol/L Carbon Dioxide 28 (22-30) mmol/L BUN 8 L (9-20) mg/dL Creatinine 0.9 (0.8-1.3) mg/dL Glucose 95 (75-100) mg/dL Calcium 8.7 (8.4-10.2) mg/dL Calcium panel 06/17/20 Range/Units 07:28 Calcium 8.7 (8.4-10.2) mg/dL Pituitary panel 06/17/20 Range/Units 07:28 Sodium 137 (137-145) mmol/L Potassium 3.6 (3.6-5.0) mmol/L Chloride 102.4 (98-107) mmol/L Carbon Dioxide 28 (22-30) mmol/L BUN 8 L (9-20) mg/dL Creatinine 0.9 (0.8-1.3) mg/dL Glucose 95 (75-100) mg/dL Calcium 8.7 (8.4-10.2) mg/dL Adrenal panel 06/17/20 Range/Units 07:28 Sodium 137 (137-145) mmol/L Potassium 3.6 (3.6-5.0) mmol/L Chloride 102.4 (98-107) mmol/L Carbon Dioxide 28 (22-30) mmol/L BUN 8 L (9-20) mg/dL Creatinine 0.9 (0.8-1.3) mg/dL Glucose 95 (75-100) mg/dL Calcium 8.7 (8.4-10.2) mg/dL - Imaging Additional Studies: Peritoneal cultures from surgery with NG thus far.
[2020-06-17] MEDS: SODIUM HYPOCHLORITE, DAKIN'S FULL STRENGTH (0.5%) 473 ML TOPICAL SOLN TP SCH ×2 (18:46→22:06)
[2020-06-18] MEDS: PANTOPRAZOLE 80 MG in SODIUM CHLORIDE 0.9% 100 ML IV SCH (04:52)
[2020-06-18] MEDS: PIPERACIL/TAZOBACTA 4.5/NS 100 4.5 GM/100 ML VIAL IV SCH ×2 (04:52→05:22)
[2020-06-18] MEDS: D5W/0.9% NACL 1,000 ML IV SCH (04:52)
[2020-06-18 06:12] VITALS: BP 124/80
--- NOTE | 2020-06-18 07:46 | Progress Note ---
Assessment and Plan - Patient Problems (1) Perforated abdominal viscus Current Visit: Yes Status: Acute Plan to address problem: 1) Can be discharged. See my note from yesterday re instructions. Would Rx Percocet 10/325, 1 po q6h prn pain, #40 and Keflex, 500 mg po q8h X 7 days, #21. Also Omeprazole, 40 mg po daily, #90, X 3. Subjective Date of service: 06/18/20 Patient Reports: Positive: no new complaints, feels better, pain is less, bowel movement Objective Vital Signs - 12hr 06/17/20 06/18/20 22:13 04:29 Temperature 98.9 F 98.5 F Pulse Rate 62 57 L Respiratory 16 16 Rate Blood Pressure 115/79 124/80 O2 Sat by Pulse 99 99 Oximetry - Abdomen PM_46_EXABD1 4, PM_46_EXABD1 6, PM_46_EXABD1 8 Hernia: none - Labs 06/17/20 07:28 06/17/20 07:28 Diabetes panel 06/17/20 Range/Units 07:28 Sodium 137 (137-145) mmol/L Potassium 3.6 (3.6-5.0) mmol/L Chloride 102.4 (98-107) mmol/L Carbon Dioxide 28 (22-30) mmol/L BUN 8 L (9-20) mg/dL Creatinine 0.9 (0.8-1.3) mg/dL Glucose 95 (75-100) mg/dL Calcium 8.7 (8.4-10.2) mg/dL Calcium panel 06/17/20 Range/Units 07:28 Calcium 8.7 (8.4-10.2) mg/dL Pituitary panel 06/17/20 Range/Units 07:28 Sodium 137 (137-145) mmol/L Potassium 3.6 (3.6-5.0) mmol/L Chloride 102.4 (98-107) mmol/L Carbon Dioxide 28 (22-30) mmol/L BUN 8 L (9-20) mg/dL Creatinine 0.9 (0.8-1.3) mg/dL Glucose 95 (75-100) mg/dL Calcium 8.7 (8.4-10.2) mg/dL Adrenal panel 06/17/20 Range/Units 07:28 Sodium 137 (137-145) mmol/L Potassium 3.6 (3.6-5.0) mmol/L Chloride 102.4 (98-107) mmol/L Carbon Dioxide 28 (22-30) mmol/L BUN 8 L (9-20) mg/dL Creatinine 0.9 (0.8-1.3) mg/dL Glucose 95 (75-100) mg/dL Calcium 8.7 (8.4-10.2) mg/dL
--- NOTE | 2020-06-18 07:55 | Discharge Summary ---
Providers - Providers Date of Admission: 06/14/20 06:22 Date of discharge: 06/18/20 Attending physician: MITZY BORRERO 06/14/20 06:02 Consult to Physician [CONS] Stat Comment: To see patient upon admission Consulting Provider: RADHA PURVIS Physician Instructions: Keep NPO; Zosyn IV; admit to Hospitalist, NG tube Reason For Exam: Perforation of abdominal viscus 06/15/20 15:04 Consult to Wound/ET Nurse [CONS] Routine Reason For Exam: wound eval Primary care physician: [employer] Hospitalization Condition: Fair Procedures: Exploratory laparotomy Hospital course: Brief History: Patient is a 39-year-old -[place] male with a history of peptic ulcer disease and chronic alcohol abuse presented to the ED with complaint of acute onset persistent severe periumbilical abdominal pain. In the ER, CT abdomen/pelvis showed Small volume ascites and punctate free air in the right upper quadrant of the abdomen worrisome for a perforation and Questionable mild wall thickening along the duodenum also noted, Findings could be seen with a duodenal ulcer perforation for example. Serum chemistry significant for leukocytosis and elevated lactic acid. Patient placed on empiric antibiotics, given IV fluid bolus, started on Protonix drip and consulted surgery from the ER. 06/15: s/p Exploratory laparotomy with oversew of perforated duodenal bulb ulcer with omentum patch repair. Keep NPO, cont iv fluid, iv abx. follow clinically. 06/16: Plan to DC NG suction today, will allow sips of water with ice chips. Continue IV fluid hydration and monitor BMP. 06/17: Discuused with GS today, plan to start on full liquid diet. if tolerates diet Can probably be discharged tomorrow. Needs oral PPI until post-op EGD can be performed. recommended no NSAID/drinking/smoking. Patient stable for discharge tolerating p.o. meds. Bowel movement. Patient status post exploratory laparotomy for perforated ulcer and chronic alcohol abuse use. Patient has been informed no alcohol no smoking and no NSAIDs use for life. I have explained to patient what NSAIDs are Motrin diclofenac etc. and if he is not sure he should ask his primary care physician prior to taking any medications for pain arthritis. Patient should continue proton pump inhibitor as initiated and follow-up with surgery in 2 weeks. Disposition: DC- TO HOME OR SELFCARE Final Discharge Diagnosis (Prints w/discharge instructions): acute gi blood loss anemia - Discharge Diagnoses (1) Abdominal pain, acute, periumbilical Status: Acute (2) Perforated abdominal viscus Status: Acute (3) Recurrent peptic ulcer disease Status: Acute Core Measure Documentation - Palliative Care Palliative Care/ Comfort Measures: Not Applicable - Core Measures Any of the following diagnoses?: none Exam - Constitutional Vitals: Temp Pulse Resp BP Pulse Ox 98.5 F 57 L 16 124/80 99 06/18/20 04:06/18/20 04:06/18/20 04:06/18/20 04:06/18/20 04:29 General appearance: Present: no acute distress, well-nourished - EENT Eyes: Present: PERRL ENT: hearing intact, clear oral mucosa - Neck Neck: Present: supple, normal ROM - Respiratory Respiratory effort: normal Respiratory: bilateral: CTA - Cardiovascular Heart Sounds: Present: S1 & S2. Absent: rub, click - Extremities Extremities: pulses symmetrical, No edema Peripheral Pulses: within normal limits - Abdominal General gastrointestinal: Present: soft, non-tender, non-distended, normal bowel sounds, other (Patient has incisional tenderness otherwise no acute pain. Bowel sounds.) Male genitourinary: Present: normal - Integumentary Integumentary: Present: clear, warm, dry - Musculoskeletal Musculoskeletal: gait normal, strength equal bilaterally - Psychiatric Psychiatric: appropriate mood/affect, intact judgment & insight - Neurologic Neurologic: CNII-XII intact, moves all extremities Plan Activity: up only with assistance Weight Bearing Status: Full Weight Bearing Diet: regular Special Instructions: home health RN, other (Follow-up with Dr. Purvis in 2 weeks.) Plan of Treatment: Dakin solution as described to patient's. Will give home health for wound treatment. Follow up with: PRIMARY CARE, [Primary Care Provider] - 7 Days Prescriptions: Sodium Hypochlorite [Dakin's Full Strength] 1 applic TP Q12HR #7 bottle Folic Acid 1 mg PO QDAY #30 tablet Pantoprazole [Protonix TAB] 40 mg PO BID #60 tablet oxyCODONE [roxiCODONE] 10 mg PO Q4H PRN #30 tablet PRN Reason: Pain, Moderate (4-6) Thiamine [Vitamin B-1] 100 mg PO QDAY #30 tablet
[2020-06-18] MEDS ORDERED: PANTOPRAZOLE 40 MG TAB PO SCH (10:00)
[2020-06-18] MEDS: SODIUM HYPOCHLORITE, DAKIN'S FULL STRENGTH (0.5%) 473 ML TOPICAL SOLN TP SCH (10:10)
[2020-06-18] MEDS: FOLIC ACID 1 MG in SODIUM CHLORIDE 0.9% 50 ML IV SCH (11:43)
[2020-06-18] MEDS: THIAMINE 100 MG in SODIUM CHLORIDE 0.9% 50 ML IV SCH (11:43)
[2020-06-19] MEDS ORDERED: FOLIC ACID 1 MG TAB PO SCH (10:00)
[2020-06-19] MEDS ORDERED: THIAMINE 100 MG TAB PO SCH (10:00)
== END 2020-06-18 11:53 | disposition home health service (06) | DRG 853 ==
LOC: ED 01:00 → 3A 06:22
PROVIDERS: ADMIT Internal Medicine Geriatric Medicine; ATTEND Internal Medicine
PROC: 0DQ90ZZ Repair Duodenum, Open Approach (ICD-10-PCS; principal; 2020-06-14)
DX: A41.9 Sepsis, unspecified organism (principal); K26.6 Chronic or unspecified duodenal ulcer with both hemorrhage and perforation; F10.10 Alcohol abuse, uncomplicated; F17.200 Nicotine dependence, unspecified, uncomplicated; Z87.11 Personal history of peptic ulcer disease
CPT/HCPCS: 36415; 74018; 74177; 80048; 80053; 80320; 81001; 82140; 82962; 83690; 85025; 85027; 87040; 87075; 87116; 96365; 99406; G0378; C9113; G0480; J0330; J1100; J1170; J1885; J2270; J2370; J2405; J2543; J2704; J2710; J3411; J7030; J7042; J7120; Q9967